=== PATIENT | female | born 1940 | race Caucasian/White ===

== ENCOUNTER 2017-10-25 16:26 | Emergency (ER) | payer MEDICARE, OTHER ==
[~2017-10-25] VITALS: Ht 162.6 cm; Wt 95.6 kg
[~2017-10-25 16:26] MED LIST: CITA40TA11 PO; LOSA50TA37 PO; METO25TA6 PO; THI100T PO
[2017-10-25 18:59] LABS: BASOPHILS # (AUTO) 0.1 X10'3 (0-0.2); BASOPHILS % (AUTO) 0.8 % (0-1); EOSINOPHILS # (AUTO) 0.2 X10'3 (0-0.9); EOSINOPHILS % (AUTO) 2.5 % (0-6); HEMATOCRIT 26.7 % (35.0-45.0); HEMOGLOBIN 8.5 g/dl (12.0-16.0); LYMPHOCYTES % (AUTO) 30.3 % (21-51); MEAN CORPUSCULAR HEMOGLOBIN 22.7 PG (27.0-31.0); MEAN CORPUSCULAR HGB CONC 31.9 % (33.0-36.5); MEAN PLATELET VOLUME 6.9 FL (7.4-10.4); MONOCYTES # (AUTO) 0.5 X10'3 (0-0.9); MONOCYTES % (AUTO) 7.6 % (2-12); NEUTROPHILS # (AUTO) 3.9 X10'3 (1.8-7.7); NEUTROPHILS % (AUTO) 58.8 % (42-75); PLATELET COUNT 309 X10'3 (140-440); RED BLOOD COUNT 3.77 X10'6 (4.20-5.60); WHITE BLOOD COUNT 6.7 X10'3 (4.5-11.0)
[2017-10-25 19:02] LABS: PARTIAL THROMBOPLASTIN TIME 30 SECONDS (22-32)
[2017-10-25 19:15] LABS: ALANINE AMINOTRANSFERASE 15 U/L (12-78); ALBUMIN 3.7 G/DL (3.4-5.0); ALBUMIN/GLOBULIN RATIO 1.2 (1.1-1.5); ALKALINE PHOSPHATASE 77 IU/L (46-116); ANION GAP 9 (8-16); ASPARTATE AMINO TRANSFERASE 12 U/L (10-37); BILIRUBIN,TOTAL 0.3 MG/DL (0.1-1.0); BLOOD UREA NITROGEN 20 MG/DL (7-18); BUN/CREATININE RATIO 20.4 (6.6-38.0); CHLORIDE 106 MMOL/L (99-107); CREATININE 0.98 MG/DL (0.40-0.90); GLUCOSE 94 MG/DL (70-104); POTASSIUM 4.4 MMOL/L (3.5-5.1); SODIUM 140 MMOL/L (135-145); TOTAL CARBON DIOXIDE 25.5 MMOL/L (24-32); TOTAL PROTEIN 6.8 G/DL (6.4-8.2); eGFR 55 ML/MIN
[2017-10-25 20:11] VITALS: BP 138/54
== END 2017-10-25 20:25 | disposition home or self-care (01) ==
LOC: ER 16:27
DX: R53.83 Other fatigue (principal); R06.02 Shortness of breath; D50.9 Iron deficiency anemia, unspecified; I10 Essential (primary) hypertension; Z98.890 Other specified postprocedural states; Z79.899 Other long term (current) drug therapy
CPT/HCPCS: 36415; 71045; 80053; 83880; 84484; 85025; 85610; 85730; 93005; 99285

== ENCOUNTER 2017-11-08 14:06 | Inpatient (IN) | payer MEDICARE, OTHER ==
[~2017-11-08] VITALS: Ht 162.6 cm; Wt 90.0 kg
[2017-11-08 14:33] LABS: BASOPHILS % (AUTO) 0.4 % (0-1); EOSINOPHILS # (AUTO) 0.3 X10'3 (0-0.9); EOSINOPHILS % (AUTO) 4.4 % (0-6); HEMATOCRIT 28.2 % (35.0-45.0); HEMOGLOBIN 8.8 g/dl (12.0-16.0); LYMPHOCYTES % (AUTO) 26.4 % (21-51); MEAN CORPUSCULAR HEMOGLOBIN 22.8 PG (27.0-31.0); MEAN CORPUSCULAR HGB CONC 31.2 % (33.0-36.5); MEAN CORPUSCULAR VOLUME 73.2 FL (78-98); MEAN PLATELET VOLUME 6.8 FL (7.4-10.4); MONOCYTES # (AUTO) 0.5 X10'3 (0-0.9); MONOCYTES % (AUTO) 7.2 % (2-12); NEUTROPHILS # (AUTO) 4.7 X10'3 (1.8-7.7); NEUTROPHILS % (AUTO) 61.6 % (42-75); PLATELET COUNT 433 X10'3 (140-440); RED BLOOD COUNT 3.85 X10'6 (4.20-5.60); RED CELL DISTRIBUTION WIDTH 18.3 % (11.5-14.5); WHITE BLOOD COUNT 7.6 X10'3 (4.5-11.0)
[2017-11-08 14:44] LABS: PARTIAL THROMBOPLASTIN TIME 32 SECONDS (22-32); PROTHROMBIN TIME 9.9 SECONDS (9.0-12.0)
[2017-11-08] MEDS ORDERED: PROP10TA10 PO (14:46)
[2017-11-08 14:48] LABS: ALANINE AMINOTRANSFERASE 25 U/L (12-78); ALBUMIN 3.8 G/DL (3.4-5.0); ALBUMIN/GLOBULIN RATIO 1.1 (1.1-1.5); ALKALINE PHOSPHATASE 75 IU/L (46-116); ANION GAP 12 (8-16); ASPARTATE AMINO TRANSFERASE 18 U/L (10-37); BILIRUBIN,TOTAL 0.3 MG/DL (0.1-1.0); BLOOD UREA NITROGEN 15 MG/DL (7-18); BUN/CREATININE RATIO 11.5 (6.6-38.0); CALCIUM 8.6 MG/DL (8.5-10.1); CHLORIDE 102 MMOL/L (99-107); CREATININE 1.31 MG/DL (0.40-0.90); GLUCOSE 116 MG/DL (70-104); POTASSIUM 4.3 MMOL/L (3.5-5.1); SODIUM 140 MMOL/L (135-145); TOTAL PROTEIN 7.2 G/DL (6.4-8.2); eGFR 39 ML/MIN
[2017-11-08] MEDS ORDERED: pantoprazole 40 MG vial IV ONE (15:45)
[2017-11-08] MEDS ORDERED: magnesium/D5W IVPB 50 ML IV PRN (16:50)
[2017-11-08] MEDS ORDERED: HYDROcodone/acetaminophen 5mg/325mg tablet PO PRN (16:50)
[2017-11-08] MEDS ORDERED: morphine 4 MG/ML inj SYRINge IV PRN ×2 (16:50)
[2017-11-08] MEDS ORDERED: diphenhydrAMINE 50 mg/ml inj IV PRN (16:50)
[2017-11-08] MEDS ORDERED: ondansetron/PF 4mg/2ml inj IV PRN (16:50)
[2017-11-08] MEDS ORDERED: potassium Cl 20 mEq SR tablet PO PRN ×2 (16:50)
[2017-11-08] MEDS ORDERED: magnesium hydroxide 30ml (MOM) UD suspension PO PRN (16:50)
[2017-11-08] MEDS ORDERED: acetaminophen 325mg tablet PO PRN ×2 (16:50)
[2017-11-08] MEDS ORDERED: potassium Cl 40MEQ/NS 500ml 500 ML IV PRN ×2 (16:50)
[2017-11-08] MEDS ORDERED: HYDROcodone/acetaminophen 10/325mg tab PO PRN (16:50)
[2017-11-08] MEDS ORDERED: magnesium Cl slow-release 64mg tablet PO PRN (16:50)
[2017-11-08] MEDS ORDERED: magnesium 4gm in 100ml NS 100 ML IV PRN (16:50)
[2017-11-08] MEDS ORDERED: mag hydrox/Alum hydrox/simeth 30ml oral suspension PO PRN (16:50)
[2017-11-08] MEDS ORDERED: PEG 3350/Na sulf,bicarb,Cl/KCl oral sol 4 liter bottle PO ONE (17:20)
[2017-11-08] MEDS ORDERED: haloperidol 5mg tablet PO PRN (17:25)
[2017-11-08] MEDS ORDERED: LORazepam 2 mg/ml vial IV PRN (17:25)
[2017-11-08] MEDS ORDERED: haloperidol lactate 5mg/ml inj IM PRN (17:25)
[2017-11-08] MEDS ORDERED: thiamine inj. 100 MG in normal saline 100ml IV soln 100 ML IV ONE (17:25)
[2017-11-08] MEDS: normal saline 1000ml 1,000 ML IV SCH (18:11)
[2017-11-08 18:45] LABS: HEMATOCRIT 25.9 % (35.0-45.0); HEMOGLOBIN 8.2 g/dl (12.0-16.0); MEAN CORPUSCULAR HEMOGLOBIN 22.9 PG (27.0-31.0); MEAN CORPUSCULAR HGB CONC 31.7 % (33.0-36.5); MEAN CORPUSCULAR VOLUME 72.3 FL (78-98); MEAN PLATELET VOLUME 6.9 FL (7.4-10.4); PLATELET COUNT 420 X10'3 (140-440); RED BLOOD COUNT 3.58 X10'6 (4.20-5.60); RED CELL DISTRIBUTION WIDTH 18.4 % (11.5-14.5); WHITE BLOOD COUNT 7.2 X10'3 (4.5-11.0)
[2017-11-08 19:30] VITALS: BP 155/66
[2017-11-08] MEDS ORDERED: temazepam 15mg capsule PO PRN (21:00)
[2017-11-08] MEDS: propranolol 10mg tablet PO SCH (21:37)
[2017-11-08 23:00] VITALS: BP 146/64
[2017-11-08 23:37] LABS: HEMATOCRIT 28.1 % (35.0-45.0); HEMOGLOBIN 8.8 g/dl (12.0-16.0); MEAN CORPUSCULAR HEMOGLOBIN 22.6 PG (27.0-31.0); MEAN CORPUSCULAR HGB CONC 31.4 % (33.0-36.5); MEAN CORPUSCULAR VOLUME 72.1 FL (78-98); MEAN PLATELET VOLUME 7.1 FL (7.4-10.4); PLATELET COUNT 457 X10'3 (140-440); RED CELL DISTRIBUTION WIDTH 18.1 % (11.5-14.5); WHITE BLOOD COUNT 7.7 X10'3 (4.5-11.0)
[2017-11-09] VITALS (19 sets, daily range): BP systolic 134–181; BP diastolic 57–121
[2017-11-09] MEDS: normal saline 1000ml 1,000 ML IV SCH ×3 (02:49→22:49)
[2017-11-09 04:45] LABS: BASOPHILS % (AUTO) 0 % (0-1); EOSINOPHILS # (AUTO) 0.3 X10'3 (0-0.9); EOSINOPHILS % (AUTO) 3.9 % (0-6); HEMATOCRIT 24.7 % (35.0-45.0); HEMOGLOBIN 7.8 g/dl (12.0-16.0); LYMPHOCYTES # (AUTO) 1.6 X10'3 (1.1-4.8); MEAN CORPUSCULAR HGB CONC 31.7 % (33.0-36.5); MEAN CORPUSCULAR VOLUME 72.6 FL (78-98); MEAN PLATELET VOLUME 6.9 FL (7.4-10.4); MONOCYTES # (AUTO) 0.5 X10'3 (0-0.9); MONOCYTES % (AUTO) 6.6 % (2-12); NEUTROPHILS # (AUTO) 4.6 X10'3 (1.8-7.7); NEUTROPHILS % (AUTO) 66.5 % (42-75); PLATELET COUNT 359 X10'3 (140-440); RED CELL DISTRIBUTION WIDTH 17.9 % (11.5-14.5)
[2017-11-09 04:54] LABS: PROTHROMBIN TIME 10.5 SECONDS (9.0-12.0)
[2017-11-09 05:03] LABS: ANION GAP 8 (8-16); BLOOD UREA NITROGEN 13 MG/DL (7-18); CHLORIDE 110 MMOL/L (99-107); GLUCOSE 116 MG/DL (70-104); POTASSIUM 4.3 MMOL/L (3.5-5.1); SODIUM 146 MMOL/L (135-145); TOTAL CARBON DIOXIDE 28.3 MMOL/L (24-32)
[2017-11-09 05:04] LABS: ALANINE AMINOTRANSFERASE 20 U/L (12-78); ALBUMIN 3.2 G/DL (3.4-5.0); ALBUMIN/GLOBULIN RATIO 1.1 (1.1-1.5); ALKALINE PHOSPHATASE 60 IU/L (46-116); AMYLASE 48 U/L (25-115); ASPARTATE AMINO TRANSFERASE 17 U/L (10-37); BILIRUBIN,TOTAL 0.3 MG/DL (0.1-1.0); BUN/CREATININE RATIO 13.8 (6.6-38.0); CREATININE 0.94 MG/DL (0.40-0.90); LIPASE 150 U/L (73-393); MAGNESIUM 1.6 MG/DL (1.5-2.4); PHOSPHORUS 3.7 MG/DL (2.3-4.5); TOTAL PROTEIN 6.2 G/DL (6.4-8.2); eGFR 58 ML/MIN
[2017-11-09] MEDS ORDERED: thiamine 100mg tablet PO SCH (08:00)
[2017-11-09] MEDS: K and/or MAG REPLACEMENT MC SCH (08:00)
[2017-11-09] MEDS: multivitamins, therapeutics tablet PO SCH (08:02)
[2017-11-09] MEDS: folic acid 1mg tablet PO SCH (08:02)
[2017-11-09] MEDS: citalopram 20mg tablet PO SCH (08:02)
[2017-11-09] MEDS: thiamine 100mg tablet PO SCH (08:03)
[2017-11-09] MEDS: propranolol 10mg tablet PO SCH ×2 (09:37→19:06)
[2017-11-09 11:28] LABS: HEMATOCRIT 23.9 % (35.0-45.0); HEMOGLOBIN 7.4 g/dl (12.0-16.0); MEAN CORPUSCULAR HEMOGLOBIN 22.5 PG (27.0-31.0); MEAN CORPUSCULAR HGB CONC 30.8 % (33.0-36.5); MEAN CORPUSCULAR VOLUME 72.9 FL (78-98); MEAN PLATELET VOLUME 6.6 FL (7.4-10.4); PLATELET COUNT 372 X10'3 (140-440); RED BLOOD COUNT 3.28 X10'6 (4.20-5.60); RED CELL DISTRIBUTION WIDTH 18.2 % (11.5-14.5); WHITE BLOOD COUNT 6.1 X10'3 (4.5-11.0)
[2017-11-09] MEDS ORDERED: MIDAZolam 5mg/5ml vial ONE (14:09)
[2017-11-09] MEDS ORDERED: fentaNYL/PF 50MCG/1 ML 2ML syringe ONE (14:09)
[2017-11-09] MEDS ORDERED: furosemide 40mg/4ml inj IV ONE (17:15)
[2017-11-09] MEDS ORDERED: CAFFEINE CITRATE 60 MG/3 ML injection vial IV PRN (19:00)
[2017-11-09] MEDS ORDERED: nitroGLYCERIN 0.4mg SUBLingual tab SL PRN (19:00)
[2017-11-09] MEDS ORDERED: metoprolol tartrate 1mg/ml inj IV PRN (19:00)
[2017-11-09] MEDS ORDERED: regadenoson 0.4mg/5ml syringe IV ONE (19:00)
[2017-11-10] VITALS (10 sets, daily range): BP systolic 122–184; BP diastolic 71–92
[2017-11-10 05:14] LABS: BASOPHILS % (AUTO) 0.5 % (0-1); EOSINOPHILS # (AUTO) 0.1 X10'3 (0-0.9); EOSINOPHILS % (AUTO) 1.5 % (0-6); HEMATOCRIT 24.4 % (35.0-45.0); HEMOGLOBIN 7.8 g/dl (12.0-16.0); LYMPHOCYTES # (AUTO) 1.4 X10'3 (1.1-4.8); LYMPHOCYTES % (AUTO) 14.9 % (21-51); MEAN CORPUSCULAR HGB CONC 31.8 % (33.0-36.5); MEAN CORPUSCULAR VOLUME 72.2 FL (78-98); MONOCYTES # (AUTO) 0.3 X10'3 (0-0.9); MONOCYTES % (AUTO) 3.2 % (2-12); NEUTROPHILS # (AUTO) 7.7 X10'3 (1.8-7.7); NEUTROPHILS % (AUTO) 79.9 % (42-75); PLATELET COUNT 382 X10'3 (140-440); PROTHROMBIN TIME 10.5 SECONDS (9.0-12.0); RED BLOOD COUNT 3.37 X10'6 (4.20-5.60); RED CELL DISTRIBUTION WIDTH 18.1 % (11.5-14.5); WHITE BLOOD COUNT 9.7 X10'3 (4.5-11.0)
[2017-11-10 05:29] LABS: ALANINE AMINOTRANSFERASE 18 U/L (12-78); ALBUMIN 3.3 G/DL (3.4-5.0); ALBUMIN/GLOBULIN RATIO 0.9 (1.1-1.5); ALKALINE PHOSPHATASE 68 IU/L (46-116); AMYLASE 35 U/L (25-115); ANION GAP 10 (8-16); ASPARTATE AMINO TRANSFERASE 18 U/L (10-37); BILIRUBIN,TOTAL 0.4 MG/DL (0.1-1.0); BLOOD UREA NITROGEN 10 MG/DL (7-18); CALCIUM 8.1 MG/DL (8.5-10.1); CHLORIDE 105 MMOL/L (99-107); CHOLESTEROL 160 MG/DL (0-200); CREATININE 0.91 MG/DL (0.40-0.90); GLUCOSE 113 MG/DL (70-104); HDL CHOLESTEROL 54 MG/DL (35-60); LDL CHOLESTEROL 98 MG/DL (50-100); LIPASE 87 U/L (73-393); MAGNESIUM 1.5 MG/DL (1.5-2.4); PHOSPHORUS 3.9 MG/DL (2.3-4.5); SODIUM 143 MMOL/L (135-145); TOTAL CARBON DIOXIDE 28.2 MMOL/L (24-32); TOTAL PROTEIN 6.8 G/DL (6.4-8.2); TRIGLYCERIDES 78 MG/DL (20-135); eGFR 60 ML/MIN
[2017-11-10] MEDS: K and/or MAG REPLACEMENT MC SCH (08:00)
[2017-11-10] MEDS ORDERED: furosemide 40mg/4ml inj IV SCH (08:00)
[2017-11-10] MEDS: folic acid 1mg tablet PO SCH (08:43)
[2017-11-10] MEDS: thiamine 100mg tablet PO SCH (08:43)
[2017-11-10] MEDS: citalopram 20mg tablet PO SCH (08:43)
[2017-11-10] MEDS: multivitamins, therapeutics tablet PO SCH (08:43)
[2017-11-10] MEDS: propranolol 10mg tablet PO SCH (08:43)
[2017-11-10] MEDS: normal saline 1000ml 1,000 ML IV SCH (08:49)
[2017-11-10] MEDS ORDERED: CAFFEINE CITRATE 60 MG/3 ML injection vial IV ONE (09:29)
[2017-11-10] MEDS ORDERED: regadenoson 0.4mg/5ml syringe IV ONE (09:30)
[2017-11-10] MEDS ORDERED: MULT-1179 PO (12:20)
[2017-11-10] MEDS ORDERED: FOLI1TAB16 PO (12:20)
[2017-11-10] MEDS ORDERED: LORazepam 1 MG tablet PO PRN (17:25)
[2017-11-10] MEDS ORDERED: LORazepam 2 mg/ml vial IV PRN (17:25)
[2017-11-11 13:48] LABS: OCCULT BLOOD STOOL POSITIVE (Neg)
[2017-11-12] MEDS ORDERED: LORazepam 1 MG tablet PO PRN (17:25)
[2017-11-12] MEDS ORDERED: LORazepam 2 mg/ml vial IV PRN (17:25)
[2017-12-12] MEDS ORDERED: cloNIDine 0.1 MG/24 HOUR patch (7 day patch) TOP SCH (10:00)
== END 2017-11-10 14:40 | disposition home or self-care (01) | DRG 393 ==
LOC: ER 14:07 → ED HOLD 16:49 → EDBEDREQ 18:28 → PCU 3S 19:29
PROVIDERS: ADMIT Family Medicine; ATTEND Family Medicine
PROC: 0DBP8ZX Excision of Rectum, Via Natural or Artificial Opening Endoscopic, Diagnostic (ICD-10-PCS; principal; 2017-11-09)
PROC: 0DBN8ZX Excision of Sigmoid Colon, Via Natural or Artificial Opening Endoscopic, Diagnostic (ICD-10-PCS; 2017-11-09)
PROC: 4A02XM4 Measurement of Cardiac Total Activity, External Approach (ICD-10-PCS; 2017-11-10)
PROC: 3E073KZ Introduction of Other Diagnostic Substance into Coronary Artery, Percutaneous Approach (ICD-10-PCS; 2017-11-10)
DX: K64.8 Other hemorrhoids (principal); I21.A1 Myocardial infarction type 2; N17.9 Acute kidney failure, unspecified; E87.0 Hyperosmolality and hypernatremia; K64.4 Residual hemorrhoidal skin tags; K62.1 Rectal polyp; I12.9 Hypertensive chronic kidney disease with stage 1 through stage 4 chronic kidney disease, or unspecified chronic kidney disease; D50.0 Iron deficiency anemia secondary to blood loss (chronic); F10.20 Alcohol dependence, uncomplicated; Z96.643 Presence of artificial hip joint, bilateral; F32.9 Major depressive disorder, single episode, unspecified; K57.30 Diverticulosis of large intestine without perforation or abscess without bleeding; N18.9 Chronic kidney disease, unspecified; Z90.710 Acquired absence of both cervix and uterus; Z87.891 Personal history of nicotine dependence; Z80.1 Family history of malignant neoplasm of trachea, bronchus and lung; Z82.3 Family history of stroke; Z71.41 Alcohol abuse counseling and surveillance of alcoholic
CPT/HCPCS: 36415; 45380; 45385; 71045; 78452; 80053; 80061; 82150; 82272; 83690; 83735; 83880; 84100; 84484; 85025; 85027; 85610; 85730; 86885; 86900; 86901; 87070; 88305; 93005; 93017; 96374; 99285; A4620; A6258; A9500; C9113; G0500; J1940; J2250; J3010; J3411; J7030

== ENCOUNTER 2017-11-13 10:11 | Emergency (ER) | payer MEDICARE, OTHER ==
[~2017-11-13] VITALS: Ht 162.6 cm; Wt 90.9 kg
[~2017-11-13 10:11] MED LIST changes: +FOLI1TAB16 PO; -LOSA50TA37 PO; -METO25TA6 PO; +MULT-1179 PO; +PROP10TA10 PO
[2017-11-13 10:49] LABS: BASOPHILS % (AUTO) 0.1 % (0-1); EOSINOPHILS # (AUTO) 0.2 X10'3 (0-0.9); EOSINOPHILS % (AUTO) 3.7 % (0-6); HEMATOCRIT 24.2 % (35.0-45.0); HEMOGLOBIN 7.6 g/dl (12.0-16.0); LYMPHOCYTES # (AUTO) 1.6 X10'3 (1.1-4.8); LYMPHOCYTES % (AUTO) 25.7 % (21-51); MEAN CORPUSCULAR HEMOGLOBIN 22.7 PG (27.0-31.0); MEAN CORPUSCULAR HGB CONC 31.4 % (33.0-36.5); MEAN CORPUSCULAR VOLUME 72.2 FL (78-98); MEAN PLATELET VOLUME 6.7 FL (7.4-10.4); MONOCYTES # (AUTO) 0.5 X10'3 (0-0.9); MONOCYTES % (AUTO) 8.1 % (2-12); NEUTROPHILS % (AUTO) 62.4 % (42-75); PLATELET COUNT 408 X10'3 (140-440); RED BLOOD COUNT 3.36 X10'6 (4.20-5.60); RED CELL DISTRIBUTION WIDTH 18.3 % (11.5-14.5); WHITE BLOOD COUNT 6.4 X10'3 (4.5-11.0)
[2017-11-13 11:00] LABS: PARTIAL THROMBOPLASTIN TIME 31 SECONDS (22-32)
[2017-11-13 11:05] LABS: ALANINE AMINOTRANSFERASE 18 U/L (12-78); ALBUMIN 2.1 G/DL (3.4-5.0); ALBUMIN/GLOBULIN RATIO 0.5 (1.1-1.5); ALKALINE PHOSPHATASE 65 IU/L (46-116); ANION GAP 9 (8-16); ASPARTATE AMINO TRANSFERASE 14 U/L (10-37); BILIRUBIN,TOTAL 0.5 MG/DL (0.1-1.0); BLOOD UREA NITROGEN 12 MG/DL (7-18); BUN/CREATININE RATIO 12.1 (6.6-38.0); CALCIUM 8.1 MG/DL (8.5-10.1); CHLORIDE 100 MMOL/L (99-107); CREATININE 0.99 MG/DL (0.40-0.90); GLUCOSE 93 MG/DL (70-104); POTASSIUM 4.3 MMOL/L (3.5-5.1); SODIUM 135 MMOL/L (135-145); TOTAL CARBON DIOXIDE 25.7 MMOL/L (24-32); TOTAL PROTEIN 6.5 G/DL (6.4-8.2); eGFR 54 ML/MIN
[2017-11-13 12:50] VITALS: BP 137/69
== END 2017-11-13 12:53 | disposition home or self-care (01) ==
LOC: ER 10:12
DX: D64.9 Anemia, unspecified (principal); R06.02 Shortness of breath; I10 Essential (primary) hypertension; Z98.890 Other specified postprocedural states; Z79.899 Other long term (current) drug therapy
CPT/HCPCS: 36415; 71045; 80053; 84484; 85025; 85610; 85730; 93005; 99285